=== PATIENT | female | born 1960 | race Hispanic/Latino ===

== ENCOUNTER 2017-02-09 08:40 | Inpatient (IN) | payer MEDICARE ==
[2017-02-09] MEDS ORDERED: Sodium Chloride 0.9% 1,000 ML IV STA (09:28)
--- NOTE | 2017-02-09 09:31 | ED PDOC ---
HPI: Chest Pain Time Seen by Provider: 02/09/17 09:02 Chief Complaint (Nursing): Chest Pain Chief Complaint (Provider): Chest pain History Per: Patient History/Exam Limitations: no limitations Onset/Duration Of Symptoms: Days (Today 2am) Current Symptoms Are (Timing): Still Present Additional Complaint(s): Chest pain left side. No dyspnea. No dizziness. Pain goes to her left neck and left arm. No abd pain, back pain. No headaches, vision changes. No fever. No calf pain, hormone tx. No long distance travel. Took naproxen and pain still present. Past Medical History Reviewed: Nursing Documentation, Vital Signs Vital Signs: Last Vital Signs Temp 97.6 F 02/09/17 08:55 Pulse 67 02/09/17 08:55 Resp 18 02/09/17 08:55 BP 130/88 02/09/17 08:55 Pulse Ox 100 02/09/17 11:38 - Medical History PMH: Anxiety, Arthritis, Hypercholesterolemia Other PMH: varicose veins - Family History Family History: States: Unknown Family Hx - Social History Current smoker - smoking cessation education provided: No Alcohol: None Drugs: Denies - Allergies Allergies/Adverse Reactions: Allergies Allergy/AdvReac Type Severity Reaction Status Date / Time No Known Allergies Allergy Verified 02/09/17 08:47 Review of Systems ROS Statement: Except As Marked, All Systems Reviewed And Found Negative Cardiovascular: Positive for: Chest Pain Musculoskeletal: Positive for: Arm Pain Physical Exam - Reviewed Nursing Documentation Reviewed: Yes Vital Signs Reviewed: Yes - Physical Exam Appears: Positive for: Non-toxic, No Acute Distress Head Exam: Positive for: ATRAUMATIC, NORMAL INSPECTION, NORMOCEPHALIC Skin: Positive for: Normal Color, Warm, DRY Eye Exam: Positive for: EOMI, Normal appearance, PERRL ENT: Positive for: Normal ENT Inspection Neck: Positive for: Normal, Painless ROM Cardiovascular/Chest: Positive for: Regular Rate, Rhythm Respiratory: Positive for: CNT, Normal Breath Sounds Gastrointestinal/Abdominal: Positive for: Normal Exam, Bowel Sounds, Soft. Negative for: Tenderness Back: Positive for: Normal Inspection. Negative for: L CVA Tenderness, R CVA Tenderness Extremity: Positive for: Normal ROM. Negative for: Tenderness, Pedal Edema Neurologic/Psych: Positive for: Alert, vessel builder II-XII, Oriented. Negative for: Motor/Sensory Deficits - Laboratory Results Result Diagrams: 02/09/17 09:00 02/09/17 09:00 Interpretation Of Abn Labs: no acute - ECG ECG: Positive for: Interpreted By Me, Viewed By Me ECG Rhythm: Positive for: Normal QRS, Normal ST Segment, Sinus Rhythm O2 Sat by Pulse Oximetry: 100 Pulse Ox Interpretation: Normal - Radiology X-Ray: Interpreted by Me, Viewed By Me X-Ray Interpretation: No Acute Disease - Progress ED Course And Treament: 1137: Stable. AAOx3. Pain free. 1144: Spoke with Dr. Guajardo. Will admit. Tele obs. Will give further orders when pt. reaches floor. Disposition - Clinical Impression Clinical Impression: Chest pain - Patient ED Disposition Is Patient to be Admitted: Yes Counseled Patient/Family Regarding: Studies Performed, Diagnosis - Disposition Disposition Time: 11:44 Condition: FAIR - Pt Status Changed To: Hospital Disposition Of: Observation - POA Present On Arrival: None Core Measure Indicators: Chest Pain
[2017-02-09 09:50] LABS: BASO % 0.4 % (0.0-2.0); EOS # 0.2 K/uL (0.0-0.7); EOS % 3.1 % (0.0-4.0); HEMATOCRIT 42.3 % (34.0-47.0); LYMPH # 2.8 K/uL (1.0-4.3); LYMPH % 40.6 % (20.0-40.0); MEAN CELL VOLUME 84.9 fl (81.0-99.0); MEAN CORPUSCULAR HEMOGLOBIN 28.1 pg (27.0-31.0); MEAN CORPUSCULAR HGB CONC 33.1 g/dL (33.0-37.0); MEAN PLATELET VOLUME 8.1 fl (7.2-11.7); MONO # 0.5 K/uL (0.0-0.8); MONO % 6.7 % (0.0-10.0); NEUT # 3.4 K/uL (1.8-7.0); NEUT % 49.2 % (50.0-75.0); NRBC % 0.1 % (0.0-0.0); RED CELL DISTRIBUTION WIDTH 14.3 % (11.5-14.5); WHITE BLOOD COUNT 6.9 K/uL (4.8-10.8)
[2017-02-09 10:02] LABS: ALB/GLOB RATIO 1.3 (1.0-2.1); ALKALINE PHOSPHATASE 75 U/L (38-126); ALT/SGPT 50 U/L (9-52); AST/SGOT 40 U/L (14-36); BILIRUBIN,TOTAL 0.9 mg/dl (0.2-1.3); BLOOD UREA NITROGEN 13 mg/dl (7-17); CALCIUM 9.5 mg/dL (8.4-10.2); CARBON DIOXIDE 28 mmol/L (22-30); CHLORIDE 104 mmol/L (98-107); GFR AFRICAN-AMERICAN > 60; GLUCOSE,RANDOM 85 mg/dL (65-105); POTASSIUM 4.2 MMOL/L (3.6-5.0); SODIUM 145 mmol/l (132-148); TOTAL PROTEIN 7.8 G/DL (6.3-8.2)
[2017-02-09 10:08] LABS: PARTIAL THROMBOPLASTIN TIME 25.9 SECONDS (23.3-32.5)
--- NOTE | 2017-02-09 12:17 | RAD ---
HISTORY: chest pain COMPARISON: No prior. FINDINGS: LUNGS: No active pulmonary disease. PLEURA: No significant pleural effusion identified, no pneumothorax apparent. CARDIOVASCULAR: Normal. OSSEOUS STRUCTURES: No significant abnormalities. VISUALIZED UPPER ABDOMEN: Normal. OTHER FINDINGS: None. IMPRESSION: No active disease.
--- NOTE | 2017-02-09 14:24 | CARD ---
APPROVED REPORT EKG Measurement Heart [id number] <Conclusion> Sinus rhythm with 1st degree AV block Otherwise normal ECG
[2017-02-09] MEDS ORDERED: Naproxen 500 MG TAB PO PRN (22:55)
[2017-02-10 02:35] LABS: BASO % 0.3 % (0.0-2.0); EOS # 0.3 K/uL (0.0-0.7); EOS % 3.4 % (0.0-4.0); HEMATOCRIT 40.5 % (34.0-47.0); LYMPH # 3.7 K/uL (1.0-4.3); LYMPH % 41.9 % (20.0-40.0); MEAN CELL VOLUME 84.5 fl (81.0-99.0); MEAN CORPUSCULAR HEMOGLOBIN 27.8 pg (27.0-31.0); MEAN CORPUSCULAR HGB CONC 32.9 g/dL (33.0-37.0); MONO # 0.5 K/uL (0.0-0.8); NEUT # 4.2 K/uL (1.8-7.0); NEUT % 48.4 % (50.0-75.0); WHITE BLOOD COUNT 8.7 K/uL (4.8-10.8)
[2017-02-10 02:42] LABS: RBC URINE 1 /hpf (0-3); URINE BACTERIA MANY (<OCC); URINE BILIRUBIN NEGATIVE (NEGATIVE); URINE BLOOD NEGATIVE (NEGATIVE); URINE COLOR STRAW (YELLOW); URINE GLUCOSE (UA) NEG (Normal); URINE KETONE NEGATIVE (NEGATIVE); URINE LEUKOCYTE ESTERASE TRACE Leu/uL (Negative); URINE PROTEIN NEGATIVE (NEGATIVE); URINE UROBILINOGEN 0.2-1.0 mg/dL (0.2-1.0); WBC URINE 4 /hpf (0-5)
[2017-02-10 02:49] LABS: ALB/GLOB RATIO 1.2 (1.0-2.1); ALKALINE PHOSPHATASE 70 U/L (38-126); ALT/SGPT 47 U/L (9-52); AST/SGOT 30 U/L (14-36); BILIRUBIN,TOTAL 0.5 mg/dl (0.2-1.3); BLOOD UREA NITROGEN 10 mg/dl (7-17); CALCIUM 9.2 mg/dL (8.4-10.2); CARBON DIOXIDE 23 mmol/L (22-30); CHLORIDE 109 mmol/L (98-107); CHOLESTEROL 172 mg/dL (0-199); GFR AFRICAN-AMERICAN > 60; GLUCOSE,RANDOM 81 mg/dL (65-105); POTASSIUM 3.5 MMOL/L (3.6-5.0); SODIUM 145 mmol/l (132-148); TOTAL PROTEIN 6.8 G/DL (6.3-8.2)
[2017-02-10 02:58] LABS: PARTIAL THROMBOPLASTIN TIME 25.9 SECONDS (23.3-32.5)
[2017-02-10] MEDS: Enoxaparin 40 mg Syringe SC SCH (08:49)
--- NOTE | 2017-02-10 11:21 | US ---
PROCEDURE: Duplex ultrasound of the carotid and vertebral arteries. HISTORY: chest pain COMPARISON: None available. TECHNIQUE: Grayscale and duplex Doppler evaluation of the cervical carotid and vertebral arteries were performed. The common carotid, carotid bifurcations and cervical ICA and proximal ECA were evaluated. The vertebral arteries were evaluated for gross patency and direction. FINDINGS: RIGHT CAROTID ARTERIES: Common Carotid Artery: Patent with no significant focal plaque. Carotid Bifurcation: No significant focal plaque. Internal Carotid Artery: Minimal homogeneous plaque. Maximal flow velocity of 89.8 cm/s. External Carotid Artery (proximal branches): Minimal homogeneous plaque. ICA/CCA Ratio: 1.4 LEFT CAROTID ARTERIES: Common Carotid Artery: Patent with no significant focal plaque. Carotid Bifurcation: Minimal homogeneous plaque. Internal Carotid Artery:Minimal homogeneous plaque. Maximal flow velocity of 117.5 cm/s. External Carotid Artery (proximal branches): Patent with no significant focal plaque. . ICA/CCA Ratio: 1.2 VERTEBRAL ARTERIES: Right Vertebral Artery: Patent. Antegrade flow. Left Vertebral Artery: Patent. Antegrade flow. OTHER FINDINGS: None. IMPRESSION: No hemodynamically significant stenosis identified in the extracranial internal carotid arteries.
--- NOTE | 2017-02-10 13:17 | CARD ---
APPROVED REPORT EXAM: Two-dimensional and M-mode echocardiogram with Doppler and color Doppler. Other Information Quality : GoodRhythm : NSR INDICATION Chest Pain 2D DIMENSIONS IVSd0.91 (0.7-1.1cm)LVDd4.24 (3.9-5.9cm) LVOT Diameter1.64 (1.8-2.4cm)PWd0.93 (0.7-1.1cm) IVSs1.30 (0.8-1.2cm)LVDs2.66 (2.5-4.0cm) FS (%) 37.3 %PWs1.11 (0.8-1.2cm) M-Mode DIMENSIONS Left Atrium (MM)3.94 (2.5-4.0cm)IVSd0.77 (0.7-1.1cm) Aortic Root2.63 (2.2-3.7cm)LVDd4.79 (4.0-5.6cm) Aortic Cusp Exc.1.85 (1.5-2.0cm)PWd0.90 (0.7-1.1cm) IVSs1.31 cmFS (%) 44 % LVDs2.68 (2.0-3.8cm)PWs1.26 cm Mitral Valve MV E Ppyqpywx56.9cm/sMV DECEL [id number] A Yinpgumt53.0cm/s MV PQD79luM/A ratio1.2MVA (PHT)3.16cm2 TDI Lateral E' Peak V12.63cm/sMedial E' Peak V6.36cm/sE/Lateral E'5.1 E/Medial E'10.0 Pulmonary Valve PV Peak Lttnagjw279.7cm/s LEFT VENTRICLE The left ventricle is normal size. There is normal left ventricular wall thickness. The left ventricular function is normal. The left ventricular ejection fraction is within the normal range. The Ejection Fraction is 65-70%. There is normal LV segmental wall motion. The left ventricular diastolic function is normal. No left ventricle thrombus noted on this study. RIGHT VENTRICLE The right ventricle is normal size. There is normal right ventricular wall thickness. The right ventricular systolic function is normal. ATRIA The left atrium size is normal. The right atrium size is normal. The interatrial septum is intact with no evidence for an atrial septal defect. AORTIC VALVE The aortic valve is normal in structure and function. No aortic regurgitation is present. There is no aortic valvular stenosis. There is no aortic valvular vegetation. MITRAL VALVE The mitral valve is normal in structure and function. There is no evidence of mitral valve prolapse. There is no mitral valve stenosis. There is no mitral valve regurgitation noted. TRICUSPID VALVE The tricuspid valve is normal in structure and function. There is no tricuspid valve regurgitation noted. There is no tricuspid valve prolapse or vegetation. There is no tricuspid valve stenosis. PULMONIC VALVE The pulmonary valve is normal in structure and function. There is no pulmonic valvular regurgitation. There is no pulmonic valvular stenosis. GREAT VESSELS The aortic root is normal in size. The IVC is normal in size and collapses >50% with inspiration. PERICARDIAL EFFUSION The pericardium appears normal. There is no pleural effusion. <Conclusion> The left ventricle is normal size. The left ventricular function is normal. The left ventricular ejection fraction is within the normal range. The Ejection Fraction is 65-70%.
--- NOTE | 2017-02-10 17:26 | CP.PCM.CON ---
History of Present Illness - History of Present Illness History of Present Illness: 56 y/o female admitted with chest pain Pt has been having muscular right neck pain for several weeks alleviated by NSAIDs the day [employer] was awakened with a left anterior chest dull aching pain that lasted 15 - 20 minutes -- no relation to exertion No chest pain since admission Troponin: neg x 3 EKG: normal Echo: Normal LV Good LV function EF: 65-70% PMH: Anxiety, Arthritis, Hypercholesterolemia Past Patient History - Past Medical History & Family History Past Medical History?: Yes - Past Social History Smoking Status: Never Smoked - CARDIAC Hx Cardiac Disorders: Yes Hx Hypercholesterolemia: Yes - NEUROLOGICAL Hx Neurological Disorder: Yes - MUSCULOSKELETAL/RHEUMATOLOGICAL Hx Arthritis: Yes Hx Falls: No - PSYCHIATRIC Hx Psychophysiologic Disorder: Yes Hx Anxiety: Yes Hx Substance Use: No - ANESTHESIA Hx Anesthesia: Yes Hx Anesthesia Reactions: No Meds Allergies/Adverse Reactions: Allergies Allergy/AdvReac Type Severity Reaction Status Date / Time No Known Allergies Allergy Verified 02/09/17 08:47 - Medications Medications: Current Medications Alprazolam (Xanax) 0.5 mg PO Q12 [facility] Last Admin: 02/10/17 08:49 Dose: Not Given Enoxaparin Sodium (Lovenox) 40 mg SC DAILY [facility] PRN Reason: Protocol Last Admin: 02/10/17 08:49 Dose: Not Given Naproxen (Naproxen) 500 mg PO Q12 PRN PRN Reason: Arthritis Last Admin: 02/10/17 08:48 Dose: 500 mg Results - Vital Signs Recent Vital Signs: Last Vital Signs Temp 97.7 F 02/10/17 16:04 Pulse 55 L 02/10/17 16:04 Resp 20 02/10/17 16:04 BP 123/80 02/10/17 16:04 Pulse Ox 96 02/10/17 16:04 - Labs Result Diagrams: 02/10/17 02:00 02/10/17 02:00 Assessment & Plan (1) Chest pain Assessment and Plan: The patient's chest pain appears to be non cardiac in origin she may be discharged to f/u as an out patient Status: Resolved
--- NOTE | 2017-02-10 19:04 | CP.PCM.HP ---
History of Present Illness - History of Present Illness History of Present Illness: CC: CP. 56 y/o F, admitted to [facility] c/o of Chest Pain L side, onset 1-2 AM DOA, Pt was taking Naproxen with no relief. As per Pt, Chest pain is in her left anterior chest, aching, intermittent, moderate intensity 6:10, radiated to L arm, associated to headache. Aggravated symptom: Chronic Neck pain, back pain. Pt denied: Fever, chills, abdominal pain, n/v, urinary symptoms, dyspnea, cough , dizziness, vision change, sick contact, recent travel. PMHx: O/A Neck and shoulders, chronic back pain, High-Cholesterol, Anxiety, Varicose Veins. Echo shows: Normal LV, EF 65-70% CXR: No active disease. Present on Admission - Present on Admission Any Indicators Present on Admission: No Review of Systems - Constitutional Constitutional: Headache - EENT Eyes: Other (negative) Ears: Other (negative) Nose/Mouth/Throat: Other (negative) - Cardiovascular Cardiovascular: Chest Pain (Left anterior chest), Pain Radiating to Arm/Neck/ Jaw (L arm). absent: Dyspnea, Leg Edema - Respiratory Respiratory: Other (negative) - Gastrointestinal Gastrointestinal: Other (negative) - Genitourinary Genitourinary: Other (negative) - Musculoskeletal Musculoskeletal: Arthralgias, Back Pain, Neck Pain, Radiating Pain into Limb - Integumentary Integumentary: Other (negative) - Neurological Neurological: Headaches - Psychiatric Psychiatric: Anxiety - Endocrine Endocrine: Other (negative) - Hematologic/Lymphatic Hematologic: Other (negative) Past Patient History - Past Medical History & Family History Past Medical History?: Yes Pertinent Family History: Unknown - Past Social History Smoking Status: Never Smoked Alcohol: None Drugs: Denies - CARDIAC Hx Cardiac Disorders: Yes Hx Hypercholesterolemia: Yes - PULMONARY Hx Respiratory Disorders: No - NEUROLOGICAL Hx Neurological Disorder: Yes - HEENT Hx HEENT Problems: No - RENAL Hx Chronic Kidney Disease: No - ENDOCRINE/METABOLIC Hx Endocrine Disorders: No - HEMATOLOGICAL/ONCOLOGICAL Hx Blood Disorders: No - INTEGUMENTARY Hx Dermatological Problems: No - MUSCULOSKELETAL/RHEUMATOLOGICAL Hx Musculoskeletal Disorders: Yes (neck pain) Hx Arthritis: Yes Hx Back Pain: Yes Hx Falls: No - GASTROINTESTINAL Hx Gastrointestinal Disorders: No - GENITOURINARY/GYNECOLOGICAL Hx Genitourinary Disorders: No - PSYCHIATRIC Hx Psychophysiologic Disorder: Yes Hx Anxiety: Yes Hx Substance Use: No - SURGICAL HISTORY Hx Surgeries: No - ANESTHESIA Hx Anesthesia: Yes Hx Anesthesia Reactions: No Meds Allergies/Adverse Reactions: Allergies Allergy/AdvReac Type Severity Reaction Status Date / Time No Known Allergies Allergy Verified 02/09/17 08:47 Physical Exam - Constitutional Appears: No Acute Distress - Head Exam Head Exam: NORMAL INSPECTION - Eye Exam Eye Exam: PERRL - ENT Exam ENT Exam: Normal Oropharynx - Neck Exam Neck exam: Positive for: Normal Inspection - Respiratory Exam Respiratory Exam: NORMAL BREATHING PATTERN - Cardiovascular Exam Cardiovascular Exam: REGULAR RHYTHM - GI/Abdominal Exam GI & Abdominal Exam: Normal Bowel Sounds, Soft - Extremities Exam Extremities exam: Positive for: normal inspection - Back Exam Back exam: NORMAL INSPECTION - Neurological Exam Neurological exam: Alert, Oriented x3 Additional comments: No motor sensory deficit. - Psychiatric Exam Psychiatric exam: Anxious - Skin Skin Exam: Normal Color, Warm Results - Vital Signs Recent Vital Signs: Last Vital Signs Temp 97.7 F 02/10/17 16:04 Pulse 55 L 02/10/17 16:04 Resp 20 02/10/17 16:04 BP 123/80 02/10/17 16:04 Pulse Ox 96 02/10/17 16:04 reviewed J.P. - Labs Result Diagrams: 02/10/17 02:00 02/10/17 02:00 Labs: reviewed J.P. - EKG Data EKG comments: reviewed J.P. - Imaging and Cardiology Chest x-ray Status: Report reviewed by me ([email or web address].) Additional comment: Echo = Reviewed J.P. Assessment & Plan (1) Chest pain, non-cardiac Status: Acute Priority: High (2) Anxiety Status: Chronic Priority: Medium (3) Cervical pain Status: Chronic Priority: Medium - Assessment and Plan (Free Text) Plan: Lovenox, Xanax, Cardiology consult. - Date & Time Date: 02/10/17 Time: 13:30
[2017-02-11 08:52] VITALS: BP 122/81; RESP 20; TEMP 97.7; O2SAT 98
[2017-02-11] MEDS: Enoxaparin 40 mg Syringe SC SCH (08:55)
[2017-02-11 10:40] VITALS: PULSE 58
--- NOTE | 2017-02-11 13:01 | CP.PCM.PN ---
Subjective - Date & Time of Evaluation Date of Evaluation: 02/11/17 Time of Evaluation: 12:40 - Subjective Subjective: F/U Chest pain. Pt with no CP, no c/o. Objective - Vital Signs/Intake and Output Vital Signs (last 24 hours): Temp Pulse Resp BP Pulse Ox 97.7 F 58 L 20 122/81 98 02/11/17 08:00 02/11/17 09:00 02/11/17 08:00 02/11/17 08:00 02/11/17 08:00 - Medications Medications: Current Medications Alprazolam (Xanax) 0.5 mg PO Q12 [facility] Last Admin: 02/11/17 08:55 Dose: Not Given Enoxaparin Sodium (Lovenox) 40 mg SC DAILY [facility] PRN Reason: Protocol Last Admin: 02/11/17 08:55 Dose: Not Given Loperamide HCl (Imodium) 2 mg PO Q4 PRN PRN Reason: diarrhea - Labs Labs: PT 10.6 SECONDS (9.6-11.2) 02/10/17 02:00 INR 1.02 (0.92-1.08) 02/10/17 02:00 APTT 25.9 SECONDS (23.3-32.5) 02/10/17 02:00 - Constitutional Appears: No Acute Distress - Head Exam Head Exam: NORMAL INSPECTION - Eye Exam Eye Exam: PERRL - ENT Exam ENT Exam: Normal Oropharynx - Neck Exam Neck Exam: Normal Inspection - Respiratory Exam Respiratory Exam: NORMAL BREATHING PATTERN - Cardiovascular Exam Cardiovascular Exam: REGULAR RHYTHM - GI/Abdominal Exam GI & Abdominal Exam: Soft, Normal Bowel Sounds - Extremities Exam Extremities Exam: Normal Inspection - Back Exam Back Exam: NORMAL INSPECTION - Neurological Exam Neurological Exam: Alert, Oriented x3. absent: Motor Sensory Deficit - Psychiatric Exam Psychiatric exam: Normal Mood - Skin Skin Exam: Normal Color, Warm Assessment and Plan (1) Chest pain, non-cardiac Status: Resolved (2) Anxiety Status: Chronic (3) Cervical pain Status: Chronic - Assessment and Plan (Free Text) Plan: Seen by Cardiology, Chest pain non cardiac. Pt improved and stable to be discharged.
--- NOTE | 2017-02-11 13:11 | CP.PCM.PN ---
Objective - Vital Signs/Intake and Output Vital Signs (last 24 hours): Temp Pulse Resp BP Pulse Ox 97.7 F 58 L 20 122/81 98 02/11/17 08:00 02/11/17 09:00 02/11/17 08:00 02/11/17 08:00 02/11/17 08:00 - Medications Medications: Current Medications Alprazolam (Xanax) 0.5 mg PO Q12 [facility] Last Admin: 02/11/17 08:55 Dose: Not Given Enoxaparin Sodium (Lovenox) 40 mg SC DAILY [facility] PRN Reason: Protocol Last Admin: 02/11/17 08:55 Dose: Not Given Loperamide HCl (Imodium) 2 mg PO Q4 PRN PRN Reason: diarrhea - Labs Labs: PT 10.6 SECONDS (9.6-11.2) 02/10/17 02:00 INR 1.02 (0.92-1.08) 02/10/17 02:00 APTT 25.9 SECONDS (23.3-32.5) 02/10/17 02:00
== END 2017-02-11 14:30 | disposition home or self-care (01) | DRG 313 ==
LOC: H.ER 08:40 → H.ERHOLD 12:00 → H.TEL 18:34 → OBSVTOIN 02-10 14:59 → H.TEL 02-10 19:26
PROVIDERS: ADMIT Internal Medicine Pulmonary Disease; ATTEND Internal Medicine Pulmonary Disease
DX: R07.89 Other chest pain (principal); F41.9 Anxiety disorder, unspecified; G89.29 Other chronic pain; E78.00 Pure hypercholesterolemia, unspecified; I83.90 Asymptomatic varicose veins of unspecified lower extremity